=== PATIENT | female | born 1995 | race Caucasian/White ===

== ENCOUNTER → 2017-02-23 | Outpatient (CLI) | payer OTHER | LOC: BMCIMAGING 11:18 | PROVIDERS: ATTEND Family Medicine | DX: S69.91XA Unspecified injury of right wrist, hand and finger(s), initial encounter (principal); W23.0XXA Caught, crushed, jammed, or pinched between moving objects, initial encounter ==

== ENCOUNTER 2017-03-20 19:10 | Emergency (ER) | payer OTHER ==
[2017-03-20] MEDS ORDERED: ONDANSETRON DISINTEGRATING 4 MG TAB PO ONE (19:51)
[2017-03-20] MEDS ORDERED: fentaNYL 100 MCG/2 ML INJ IVP ONE (20:24)
[2017-03-20 20:33] LABS: % IMMATURE GRANULYOCYTES 0.2 % (0.0-1.1); ABSOLUTE IMMATURE GRANULOCYTES 0.01 10^3/uL (0.00-0.10); ADD DIFF? NO; ADD MORPH? NO; ADD SCAN? NO; ATYPICAL LYMPHOCYTE FLAG 10 (0-99); FRAGMENT RBC FLAG 0 (0-99); HEMATOCRIT 40.9 % (38.0-47.0); HEMOGLOBIN 14.1 g/dL (12.6-16.3); LEFT SHIFT FLG 0 (0-99); LIPEMIA HEMOLYSIS FLAG 90 (0-99); MEAN CELL HEMOGLOBIN 30.7 pg (27.9-34.1); MEAN CELL HEMOGLOBIN CONCENTR. 34.5 g/dL (32.4-36.7); MEAN CELL VOLUME 88.9 fL (81.5-99.8); PLATELET CLUMPS FLAG 0 (0-99); PLATELET COUNT 175 10^3/uL (150-400); RED CELL DISTRIBUTION WIDTH 13.4 % (11.5-15.2)
[2017-03-20] MEDS ORDERED: ONDANSETRON 4 MG/2 ML VIAL IVP ONE (20:33)
[2017-03-20 20:38] LABS: ANION GAP 13 mEq/L (8-16); CALCIUM 9.5 mg/dL (8.5-10.4); CARBON DIOXIDE 20 mEq/l (22-31); CHLORIDE 105 mEq/L (97-110); CREATININE 0.6 mg/dL (0.6-1.0); GLOMERULAR FILTRATION RATE > 60; GLUCOSE 90 mg/dL (70-100); POTASSIUM 3.9 mEq/L (3.5-5.2); SODIUM 138 mEq/L (134-144)
[2017-03-20 20:54] LABS: COLOR YELLOW; LEUKOCYTE ESTERASE,URINE NEGATIVE (NEGATIVE); NITRITE,URINE NEGATIVE (NEGATIVE)
[2017-03-20 21:16] LABS: BACTERIA TRACE /hpf (NONE SEEN); MUCUS 2+ /lpf (NONE-1+); RBC,URINE 50-182 /hpf (0-3)
[2017-03-20 21:17] LABS: WBC,URINE NONE SEEN /hpf (0-3)
[2017-03-20 22:15] VITALS: RESP 16
[2017-03-20] MEDS ORDERED: IOPAMIDOL (ISOVUE-300) 100 ML BTL ONE (23:45)
--- NOTE | 2017-03-21 00:13 | EDPHY ---
H & P Time Seen by Provider: 03/20/17 19:51 HPI/ROS: CHIEF COMPLAINT: Abdominal pain HISTORY OF PRESENT ILLNESS: 22-year-old female presents to the emergency department by private vehicle complaining of severe left upper quadrant abdominal pain and suprapubic pain. She states the pain started rather abruptly in her left flank area last night when she was at a bar. She went home and was able to sleep. When she woke up this morning she felt fine and then developed recurring pain this evening and now the pain is radiating into her suprapubic area. She denies nausea or vomiting. She states that she had a normal bowel movement yesterday. She denies . She is currently on her menstrual periods. She denies chest pain or difficulty breathing. Denies dysuria, urgency or frequency with urination REVIEW OF SYSTEMS: Constitutional: No fever, no chills. Eyes: No double or blurry vision. ENT: No sore throat. Respiratory: No cough, no shortness of breath. Cardiac: No chest pain. Gastrointestinal: As above. No vomiting or diarrhea. Genitourinary: No dysuria. Musculoskeletal: No neck or back pain. Skin: No rashes. Neurological: No headache. Past Medical/Surgical History: Irritable bowel syndrome Social History: [employer] student Smoking Status: Never smoked Physical Exam: General Appearance: Alert, no distress. Afebrile. Eyes: Pupils equal and round. Extraocular motions are all intact. ENT: Mouth: Mucous membranes moist. Respiratory: No wheezing, rhonchi, or rales, lungs are clear to auscultation. Cardiovascular: Regular rate and rhythm. Gastrointestinal: Patient has tenderness with palpation in the left upper quadrant. There is no rebound, guarding or masses noted. She also has some pain with palpation in the suprapubic area. Neurological: Alert and oriented x 3, cranial nerves II through XII grossly intact Skin: Warm and dry, no rashes. Musculoskeletal: Nontender to palpate along the cervical, thoracic or lumbar spine. Neck is supple. Extremities: Full range of motion and no peripheral edema. Psychiatric: Patient is oriented X 3, there is no agitation. Constitutional: Initial Vital Signs Temperature (C) 36.6 C 03/20/17 19:11 Heart Rate 76 03/20/17 19:11 Respiratory Rate 18 03/20/17 19:11 Blood Pressure 138/83 H 03/20/17 19:11 O2 Sat (%) 99 03/20/17 19:11 O2 Delivery Mode Room Air Allergies/Adverse Reactions: Penicillins Allergy (Verified 12/15/15 19:08) Home Medications: Medication Instructions Recorded [place] 3 mg-0.03 mg Tablet 12/15/15 Ondansetron Odt [Zofran Odt] 4 mg PO Q4-6PRN PRN #10 tab 12/15/15 Zoloft 50mg (*) 12/15/15 Medical Decision Making - Diagnostics Imaging Results: Imaging Impressions Pelvic/Renal Ultrasound 03/20/17 20:23 Impression: Normal ultrasound pelvis. Findings and recommendations discussed with Emergency Department physician, MADELINE NARAYAN at 23:41 hour, 03/20/2017. Final report concurs with initial preliminary interpretation. Abdomen CT 03/20/17 23:43 Impression: 1. Mild constipation. 2. No CT evidence of appendicitis, abscess or bowel obstruction. Findings and recommendations discussed with Emergency Department physician, MADELINE NARAYAN at 0:06 hour, 03/21/2017. Final report concurs with initial preliminary interpretation. Imaging: Discussed imaging studies w/ score caller Radiologist ED Course/Re-evaluation: 22-year-old female presents with severe lower abdominal pain. Pelvic ultrasound was unremarkable. Her laboratory studies were all within normal limits. Patient continued to have ongoing pain because her ultrasound was normal, I recommended CT imaging of the abdomen pelvis. This was discussed with the patient who verbalized understanding and agreed. CT scan is unremarkable showing only moderate constipation. No free fluid. Appendix is well visualized and normal. Patient was reassured. She will be discharged home with magnesium citrate for her constipation. She was instructed to return to the emergency department she developed worsening pain, change in symptoms or if she felt worse. Differential Diagnosis: Including but not limited to ovarian cyst, ovarian torsion, intrauterine , ectopic , urinary tract infection, pyelonephritis, bowel obstruction, constipation, acute appendicitis - Data Points Laboratory Results: Laboratory Results 03/20/17 20:00 03/20/17 20:00 03/20/17 03/20/17 03/20/17 20:34 20:00 20:00 WBC RBC Hgb Hct MCV MCH MCHC RDW Plt Count MPV Neut % (Auto) Lymph % (Auto) [place] % (Auto) Eos % (Auto) Baso % (Auto) Nucleat RBC Rel Count Absolute Neuts (auto) Absolute Lymphs (auto) Absolute Monos (auto) Absolute Eos (auto) Absolute Basos (auto) Absolute Nucleated RBC Immature Gran % Immature Gran # Sodium 138 mEq/L mEq/L (134-144) Potassium 3.9 mEq/L mEq/L (3.5-5.2) Chloride 105 mEq/L mEq/L (97-110) Carbon Dioxide 20 mEq/l L mEq/l (22-31) Anion Gap 13 mEq/L mEq/L (8-16) BUN 10 mg/dL mg/dL (7-23) Creatinine 0.6 mg/dL mg/dL (0.6-1.0) Estimated GFR > 60 Glucose 90 mg/dL mg/dL (70-100) Calcium 9.5 mg/dL mg/dL (8.5-10.4) Beta HCG, Qual NEGATIVE Urine Color YELLOW Urine Appearance MODERATELY TURBID Urine pH 5.0 (5.0-7.5) Ur Specific Jay 1.023 (1.002-1.030) Urine Protein 2+ H (NEGATIVE) Urine Ketones 1+ H (NEGATIVE) Urine Blood 3+ H (NEGATIVE) Urine Nitrate NEGATIVE (NEGATIVE) Urine Bilirubin NEGATIVE (NEGATIVE) Urine Urobilinogen NEGATIVE EU EU (0.2-1.0) Ur Leukocyte Esterase NEGATIVE (NEGATIVE) Urine RBC 50-182 /hpf H /hpf (0-3) Urine WBC NONE SEEN /hpf /hpf (0-3) Ur Epithelial Cells NONE SEEN /lpf /lpf (NONE-1+) Calcium Oxalate Crystal PRESENT /hpf /hpf (NONE-1+) Urine Bacteria TRACE /hpf H /hpf (NONE SEEN) Urine Mucus 2+ /lpf H /lpf (NONE-1+) Urine Glucose NEGATIVE (NEGATIVE) 03/20/17 20:00 WBC 6.24 10^3/uL 10^3/uL (3.80-9.50) RBC 4.60 10^6/uL 10^6/uL (4.18-5.33) Hgb 14.1 g/dL g/dL (12.6-16.3) Hct 40.9 % % (38.0-47.0) MCV 88.9 fL fL (81.5-99.8) MCH 30.7 pg pg (27.9-34.1) MCHC 34.5 g/dL g/dL (32.4-36.7) RDW 13.4 % % (11.5-15.2) Plt Count 175 10^3/uL 10^3/uL (150-400) MPV 12.0 fL H fL (8.7-11.7) Neut % (Auto) 55.8 % % (39.3-74.2) Lymph % (Auto) 34.5 % % (15.0-45.0) [place] % (Auto) 7.4 % % (4.5-13.0) Eos % (Auto) 1.6 % % (0.6-7.6) Baso % (Auto) 0.5 % % (0.3-1.7) Nucleat RBC Rel Count 0.0 % % (0.0-0.2) Absolute Neuts (auto) 3.49 10^3/uL 10^3/uL (1.70-6.50) Absolute Lymphs (auto) 2.15 10^3/uL 10^3/uL (1.00-3.00) Absolute Monos (auto) 0.46 10^3/uL 10^3/uL (0.30-0.80) Absolute Eos (auto) 0.10 10^3/uL 10^3/uL (0.03-0.40) Absolute Basos (auto) 0.03 10^3/uL 10^3/uL (0.02-0.10) Absolute Nucleated RBC 0.00 10^3/uL 10^3/uL (0-0.01) Immature Gran % 0.2 % % (0.0-1.1) Immature Gran # 0.01 10^3/uL 10^3/uL (0.00-0.10) Sodium Potassium Chloride Carbon Dioxide Anion Gap BUN Creatinine Estimated GFR Glucose Calcium Beta HCG, Qual Urine Color Urine Appearance Urine pH Ur Specific Jay Urine Protein Urine Ketones Urine Blood Urine Nitrate Urine Bilirubin Urine Urobilinogen Ur Leukocyte Esterase Urine RBC Urine WBC Ur Epithelial Cells Calcium Oxalate Crystal Urine Bacteria Urine Mucus Urine Glucose Medications Given: Discontinued Medications Fentanyl (Sublimaze) 50 mcg IVP EDNOW ONE Stop: 03/20/17 20:25 Last Admin: 03/20/17 22:12 Dose: 50 mcg Magnesium Citrate (Magnesium Citrate) 300 ml PO ONCE ONE Stop: 03/21/17 00:38 Last Admin: 03/21/17 00:56 Dose: 300 ml Ondansetron HCl (Zofran Odt) 4 mg PO EDNOW ONE Stop: 03/20/17 19:52 Last Admin: 03/20/17 19:53 Dose: 4 mg Ondansetron HCl (Zofran) 4 mg IVP EDNOW ONE Stop: 03/20/17 20:34 Last Admin: 03/20/17 22:12 Dose: Not Given Departure - Departure Disposition: Home, Routine, Self-Care Clinical Impression: Abdominal pain Qualifiers: Abdominal location: lower abdomen, unspecified Qualified Code(s): R10.30 - Lower abdominal pain, unspecified Condition: Good Instructions: Magnesium Citrate (By mouth), Abdominal Pain (ED) Additional Instructions: Abdominal Pain: Return to the Emergency Department immediately for increasing pain, fever, vomiting, or if not completely better in 8-12 hours. You have evidence of constipation on your CT scan. Would benefit from drinking plenty of fluids, a high-fiber diet, and possibly even magnesium citrate which is [id number] to help relieve symptoms of constipation. Referrals: ELIS HURTADO [Other] - As per Instructions
[2017-03-21] MEDS ORDERED: MAGNESIUM CITRATE 300 ML BOTTLE PO ONE (00:37)
[2017-03-21 01:05] VITALS: BP 121/88; PULSE 65; TEMP 97.3; O2SAT 97
== END 2017-03-21 01:01 | disposition home or self-care (01) ==
DX: R10.30 Lower abdominal pain, unspecified (principal)
CPT/HCPCS: 96374; J2405; J3010; Q9967